=== PATIENT | female | born 1995 | race Caucasian/White ===

== ENCOUNTER → 2020-03-27 | Outpatient (CLI) | payer BC ==
--- NOTE | 2020-04-30 09:28 | EM ---
EVENT MONITOR EVENT MONITOR: A 24-year-old female with palpitations. 1. Event monitor shows mostly sinus rhythm. 2. Sinus tachycardia. 3. One very brief single episode of nonsustained atrial tachycardia. No significant arrhythmias noted. MMODL / IJN: [id number] /
== END | disposition home or self-care (01) ==
LOC: RADECHMAIN 12:38
PROVIDERS: ATTEND Family Medicine
DX: I47.1 Supraventricular tachycardia (principal); R00.2 Palpitations
CPT/HCPCS: 93270

== ENCOUNTER → 2023-03-25 | Outpatient (CLI) | payer BC ==
--- NOTE | 2023-03-28 05:46 | CT ---
EXAMINATION TYPE: CT abdomen w con DATE OF EXAM: 03/25/2023 COMPARISON: Prior CT abdomen and pelvis November 13, 2013 HISTORY: Abnormal blood work and weight loss x [address] DLP: 1280 mGycm Automated exposure control for dose reduction was used. TECHNIQUE: Helical acquisition of images was performed from the lung bases through the top of iliac crest to include entire abdomen. CONTRAST: Performed with Oral Contrast and without and with IV Contrast, patient injected with 100 cc mL of Iso sky 300. Adrenal mass protocol. FINDINGS: LUNG BASES: No significant abnormality is appreciated. LIVER/GB: No significant abnormality is appreciated. PANCREAS: No significant abnormality is seen. SPLEEN: No significant abnormality is seen. ADRENALS: No significant abnormality is seen. KIDNEYS: Noncontrast images show no renal calculi bilaterally. Postcontrast images show symmetric cor ticomedullary uptake and excretion without hydronephrosis seen bilaterally. BOWEL: Oral contrast does not reach level of the terminal ileum. This along with patient having aidan le intra-abdominal fat makes evaluation bowel particularly distal bowel suboptimal. No suspicious sma ll or large bowel dilatation is seen. LYMPH NODES: No significant abnormality is seen. OSSEOUS STRUCTURES: No significant abnormality is seen. FREE AIR: No free air is visualized. OTHER: None IMPRESSION: No obvious abnormality is seen.
== END | disposition home or self-care (01) ==
LOC: RADCTMAIN 16:04
PROVIDERS: ATTEND Internal Medicine Endocrinology, Diabetes & Metabolism
DX: R63.4 Abnormal weight loss (principal)
CPT/HCPCS: 74160; Q9967

== ENCOUNTER → 2025-02-20 | Outpatient (CLI) | payer BC ==
[2025-02-20 10:28] LABS: HCT 41.8 % (37.2-46.3); HGB 13.1 g/dL (12.0-15.0); MCHC 31.3 g/dL (32.0-37.0); MCV 92.7 FL (80.0-97.0); Mean Platelet Volume 10.7 FL (9.5-12.2); NRBC Per 100 WBC 0 X 10*3/uL (0.00-0.01); Platelet Count 298 X 10*3/uL (140-440); RBC 4.51 X 10*6/uL (4.10-5.20); RDW 13.1 % (11.5-14.5); WBC 8.17 X 10*3/uL (4.50-10.00)
[2025-02-20 10:29] LABS: Basophils # (A) 0.06 X 10*3/uL (0.00-0.10); Basophils % (A) 0.7 %; Eosinophils # (A) 0.06 X 10*3/uL (0.04-0.35); Eosinophils % (A) 0.7 %; Lymphocytes # (A) 3.26 X 10*3/uL (0.90-5.00); Lymphocytes % (A) 39.9 %; Monocytes # (A) 0.47 X 10*3/uL (0.20-1.00); Monocytes % (A) 5.8 %; Neutrophils % (A) 52.7 %
[2025-02-20 10:53] LABS: ALT 21 U/L (8-44); AST 27 U/L (13-35); Albumin 4.6 g/dL (3.8-4.9); Albumin/Globulin Ratio 1.64 Ratio (1.60-3.17); Alkaline Phosphatase 54 U/L (41-126); BUN/Creat Ratio 12.11 Ratio (12.00-20.00); Blood Urea Nitrogen 10.9 mg/dL (9.0-27.0); Calcium 9.9 mg/dL (8.7-10.3); Carbon Dioxide 24.9 mmol/L (21.6-31.8); Chloride 102 mmol/L (96-109); Chol/HDL Ratio 3.01 Ratio; Globulin 2.8 g/dL (1.6-3.3); Glucose 102 mg/dL (70-110); LDL Cholesterol,Calculated 96.6 mg/dL (0.0-131.0); Potassium 4.3 mmol/L (3.5-5.5); Sodium 138 mmol/L (135-145); Total Bilirubin 0.8 mg/dL (0.3-1.2); Total Protein 7.4 g/dL (6.2-8.2); VLDL Calculation 19.62 mg/dL (5.00-40.00)
[2025-02-20 12:39] LABS: Erythrocyte Sedimentation Rate 4 mm/Hr (0-20)
[2025-02-20 16:24] LABS: Appearance,Urine Clear (Clear); Bilirubin,Urine Negative (Negative); Blood,Urine Trace (Negative); Color,Urine Yellow (Yellow); Ketones,Urine Negative (Negative); Nitrite,Urine Negative (Negative); Specific Gravity,Urine 1.018 (1.001-1.030); Urobilinogen,Urine 0.2 E.U./DL
[2025-02-20 16:49] LABS: Bacteria,Urine 1+ (None Seen); Mucus,Urine Present
== END | disposition home or self-care (01) ==
LOC: LABWHC1 07:04
PROVIDERS: ATTEND Internal Medicine
DX: Z13.29 Encounter for screening for other suspected endocrine disorder (principal); Z13.220 Encounter for screening for lipoid disorders; E24.9 Cushing's syndrome, unspecified; L52 Erythema nodosum; R35.0 Frequency of micturition; R73.01 Impaired fasting glucose; R79.89 Other specified abnormal findings of blood chemistry
CPT/HCPCS: 36415; 80053; 80061; 81001; 82024; 82533; 83036; 84443; 85025; 85652; 86038; 86141; 86618

== ENCOUNTER → 2025-03-08 | Outpatient (CLI) | payer BC | END | disposition home or self-care (01) | LOC: LABWHC1 07:26 | PROVIDERS: ATTEND Internal Medicine | DX: Z13.29 Encounter for screening for other suspected endocrine disorder (principal); Z13.220 Encounter for screening for lipoid disorders; E24.9 Cushing's syndrome, unspecified; L52 Erythema nodosum; R35.0 Frequency of micturition; R73.01 Impaired fasting glucose; R79.89 Other specified abnormal findings of blood chemistry | CPT/HCPCS: 36415; 86618 ==